=== PATIENT | male | born 1985 | race Caucasian/White ===

== ENCOUNTER 2016-12-26 17:54 | Inpatient (IN) | payer BC, OTHER ==
[~2016-12-26] VITALS: Ht 175.3 cm; Wt 73.5 kg
[2016-12-26] MEDS ORDERED: ONDANSETRON ODT 4 MG TAB.RAPDIS SL PRN (21:00)
[2016-12-26] MEDS ORDERED: HYDROXYZINE PAMOATE 25 MG CAPSULE PO PRN (21:00)
[2016-12-26] MEDS ORDERED: ONDANSETRON 4 MG/2 ML VIAL IM PRN (21:00)
[2016-12-26] MEDS ORDERED: IBUPROFEN 600 MG TABLET PO PRN (21:00)
[2016-12-26] MEDS ORDERED: DICYCLOMINE HCL 20 MG TABLET PO PRN (21:00)
[2016-12-26] MEDS ORDERED: diphenhydrAMINE 50 MG CAPSULE PO PRN (21:00)
[2016-12-26] MEDS ORDERED: MIRALAX 17 GM POWD.PACK PO PRN (21:00)
[2016-12-26] MEDS ORDERED: BUPRENORPHINE HCL 2 MG TAB.SUBL SL PRN (21:00)
[2016-12-26] MEDS ORDERED: CLONIDINE HCL 0.1 MG TABLET PO PRN (21:00)
[2016-12-26] MEDS ORDERED: LOPERAMIDE HCL 2 MG CAPSULE PO PRN ×2 (21:00)
[2016-12-26] MEDS ORDERED: METHOCARBAMOL 750 MG TABLET PO PRN (21:00)
[2016-12-26] MEDS ORDERED: ACETAMINOPHEN 325 MG TABLET PO PRN (21:00)
[2016-12-26] MEDS ORDERED: MAG HYDROX/AL HYDROX/SIMETH 30 ML LIQUID UDC PO PRN (21:00)
--- NOTE | 2016-12-26 21:20 | NUR ---
PRE ADMISSION Pt is a 31 y/o male, seen at intake, AAOx4, no SOB with mild anxiety, flat affect and malaise noted at this time. Discussed with patient the admission policies of the unit. Patient is coherent and able to respond to questions appropriately. Pt reports his last intake of heroin was 0.3 grams via oral inhalation a few hours ago. Pt is ambulatory with steady gait. Vital signs taken and as follows: BP: 114/67, P: 77, R: 16, O2: 98%, T: 96.1, PA: 0/10. Pt verbalized understanding of instructions and teachings regarding disposal of narcotic and other controlled home medications, unit protocols such as taking of vital signs Q4H and handling and disposal of contraband. Pt reports he does not take any home medications. Will continue with admission upon pts arrival on the unit.
--- NOTE | 2016-12-26 21:35 | NUR ---
ADMISSION NOTE Pt is a 31 y/o male admitted on 12/26/16 for opiate dependence, arrived on the unit at 2135. Pt has NKA, denies history of seizures. Pt was able to provide UDS. Upon admission CIWA 1, BP: 114/67, P: 77, R: 16, O2: 98%, T: 96.1, PA: 0/10. Weight 162, height 5'9. Pt reports he does not have a PCP, smokes half a pack daily, denies being hospitalized within past 30 days. Pt is able to understand and respond to all questions pertaining to his hospitalization. Substance Abuse History is as follows: 1. Heroin 0.3-0.4 grams daily, last intake of 0.3 grams via oral inhalation 12/26/16 "a few hours ago," at this rate for 3 days. 2. Methamphetamine "one hit" once a month, last intake via oral inhalation on 12/25/16 "one hit," at this rate for 3 years. Pt reports his longest sober period for 92 days while pt was in a treatment center. Pt has only been to a treatment center once at [facility] in [facility] for 92 days in August 2016. Pt reports this is his first time in medical detox. Pt denies substance use history in family. Pt reports his mother has a valve abnormality, no other family medical conditions. Pt lives with his parents and is unemployed. PMH: Spondylolisthesis, Chlamydia (2009), rhinoplasty (2001) and tonsillectomy (1999). Pt denies any hx of seizures. Pt denies taking any home medications. Upon assessment, pt is AAOx4, pt is mildly intoxicated, presents with anxiety, malaise and flat/depressed affect. Respirations even and unlabored. Denies SOB, chest pain, N/V/D. Bowel sounds active x 4, abdomen soft. PERRLA. Skin intact, no open wounds noted. Pt denies SI/HI. Educational information provided and left at bedside. Pt oriented to room and encouraged to notify staff with any concerns. Safety measures in place. Call light within reach, side rails up x 2, bed locked and in low position. Will continue to monitor.
[2016-12-26 21:42] LABS: BASOPHILS # (AUTO) 0.1 K/uL (0.0-8.0); BASOPHILS % (AUTO) 0.6 % (0.0-2.0); EOSINOPHILS # (AUTO) 0.4 K/uL (0.0-0.7); EOSINOPHILS % (AUTO) 3.4 % (0.0-7.0); HEMATOCRIT 46.8 % (40-50); HEMOGLOBIN 15.8 G/DL (14.0-18.0); LYMPHOCYTES # (AUTO) 2.9 K/UL (0.8-4.8); LYMPHOCYTES % (AUTO) 24.1 % (20.5-51.5); MEAN CORPUSCULAR HEMOGLOBIN 31.2 UUG (27.0-31.0); MEAN CORPUSCULAR HGB CONC 34 g/dL (32.0-37.0); MEAN CORPUSCULAR VOLUME 92.3 FL (82.0-92.0); MONOCYTES # (AUTO) 1.2 K/UL (0.1-1.30); MONOCYTES % (AUTO) 10.2 % (0.0-11.0); NEUTROPHILS # (AUTO) 7.6 K/UL (1.8-8.9); NEUTROPHILS % (AUTO) 61.7 % (38.5-71.5); PLATELET COUNT (AUTO) 319 K/UL (150-450); RED BLOOD CELL COUNT(AUTO) 5.07 MIL/UL (4.7-6.1); WHITE BLOOD COUNT (AUTO) 12.2 K/UL (4.0-11.2)
[2016-12-26 21:56] LABS: ETHANOL < 3 MG/DL (0-0)
[2016-12-26 22:01] LABS: *AMPHETAMINE, URINE POSITIVE (NEGATIVE); *BARBITURATE, URINE NEGATIVE (NEGATIVE); *CANNABINOID, URINE NEGATIVE (NEGATIVE); *COCCAINE, URINE NEGATIVE (NEGATIVE); *OPIATE, URINE POSITIVE (NEGATIVE); *PHENCYCLIDINE SCREEN,URINE NEGATIVE (NEGATIVE)
[2016-12-26 22:10] LABS: ALANINE AMINOTRANSFERASE 20 U/L (16-63); ALKALINE PHOSPHATASE 82 U/L (50-136); ASPARTATE AMINOTRANSFERASE 12 U/L (15-37); BILIRUBIN,TOTAL 0.4 mg/dL (0.2-1.0); CARBON DIOXIDE 33 mmol/L (21-32); CHLORIDE 103 mmol/L (98-107); CREATININE 1.3 mg/dL (0.6-1.3); GLUCOSE 103 mg/dL (74-106); MAGNESIUM 2.2 mg/dL (1.8-2.4); POTASSIUM 4.7 mmol/L (3.5-5.1); TOTAL PROTEIN, SERUM 7.5 g/dL (6.4-8.2); UREA NITROGEN, BLOOD 13 mg/dL (7-18)
[2016-12-27] VITALS (7 sets, daily range): BP systolic 77–112; BP diastolic 47–63
--- NOTE | 2016-12-27 | NUR ---
COW DEFERRED Pt is laying in bed with eyes closed, COW deferred, to be assessed when pt is awake per orders. Respirations 16, even and unlabored. Safety measures in place. Call light within reach. Will continue to monitor.
--- NOTE | 2016-12-27 07:28 | NUR ---
END OF SHIFT Pt is a 31 y/o male admitted on 12/26/16 for opiate dependence. Pt was dependent on 0.3-0.4 grams of heroin for the past three days (since relapse) with last intake of 0.3 grams a few hours prior to admission and reports occasional meth use, one hit every month for the past 3 years, last intake 12/25/16. Pt is full code, NKA, regular diet, fall/seizure precautions. No reported seizure history. Pt reports PMH of spondylolisthesis with hx of Chlamydia (2009), rhinoplasty (2001) and tonsillectomy (1999). No ordered taper at this time, PRN Subutex available. Pt presented with anxiety, flat/depressed affect, fatigue and malaise. No mediations/PRNs administered during shift. Pt slept 7 hours. Intake 650 ml, void x 1, stool x 0. Safety measures in place. Call light within reach. Pts needs have been met. Endorsed to day shift nurse.
--- NOTE | 2016-12-27 07:36 | NUR ---
START OF SHIFT Received report from night nurse. 31 year old male admitted on 12/26/16 for Heroin and Methamphetamine withdrawals. Pt has not yet been started on a taper and does not present with s/s of acute withdrawal at this time. Pt is resting in bed and denies discomfort. V/S are stable, most recent b/p at 0730 is 100/56. Pt slept for 7 hours at night, no PRN medications needed or administered. Last COWS is 1 per night nurse. NKA, full code, regular diet. Safety measures are in place, will continue to monitor.
[2016-12-27] MEDS ORDERED: TUBERCULIN,PURIF.PROT.DERIV. 5 TU/0.1 ML TEST ID ONE ×2 (09:00→15:00)
--- NOTE | 2016-12-27 09:11 | NUR ---
TB TEST IS BEING REQUESTED AT A LATER TIME. PATIENT STATES "I AM OKAY WITH GETTING IT, JUST NOT RIGHT NOW. I WANT TO SLEEP." PATIENT EDUCATION PROVIDED INCLUDING HOSPITAL PROTOCOL. WILL OFFER TB AT 1500.
[2016-12-27] MEDS ORDERED: NICOTINE 14 MG/24HR PATCH TD PRN (11:15)
[2016-12-27] MEDS ORDERED: NICOTINE POLACRILEX 4 MG GUM-PK OF TEN BC PRN (11:15)
[2016-12-27] MEDS ORDERED: BUPRENORPHINE HCL 2 MG TAB.SUBL SL SCH (15:00)
--- NOTE | 2016-12-27 15:00 | NUR ---
TB TEST REFUSED Pt states "I do not want it." Education provided on importance of compliance, pt verbalizes understanding but states he does not believe he was exposed, therefore refuses.
[2016-12-27] MEDS: BUPRENORPHINE HCL 2 MG TAB.SUBL SL SCH ×2 (17:00→20:40)
--- NOTE | 2016-12-27 18:49 | NUR ---
END OF SHIFT Pt has not yet started on Subutex taper, pt was not presenting with acute s/s and denies discomfort, pt states he will notify nurse when withdrawals are present. No medications were given to pt, pt refuses PPD. V/S run low, pt is asymptomatic, denies pain throughout shift. COWS 4 at 1700. Pt remains in room for most of the shift and sleeps, pt encouraged to verbalize feelings and attend groups and activities. Pt remain safe and report he is comfortable at this time. Night nurse to continue monitoring.
--- NOTE | 2016-12-27 19:25 | NUR ---
START OF SHIFT Patient is 31-year-old male admitted on 12/26/16 for heroin and meth dependence. Patient has past medical history of spondylolisthesis, chlamydia in 2009, rhinoplasty in 2001, and tonsillectomy in 1999. Patient is FULL code, NKA, and on a regular diet. Upon assessment, alert and oriented x4, patient is resting in bed. Patient's respirations are even and unlabored. Patient reports that he is not feeling well at the moment as is requesting his scheduled medications. Patient is on fall precautions, bed locked in low position, side rails up x2, call light within reach. Will continue to monitor.
--- NOTE | 2016-12-28 | NUR ---
MIDNIGHT VITALS REFUSED, COWS DEFERRED Patient refuses to be woken up for midnight vitals. Respirations are 16/min, breathing is even and unlabored at this time. Unable to score COWS at this time due to patient sleeping; to be assessed while patient is awake per protocol. Safety measures in place, call light within reach. Will continue to monitor.
--- NOTE | 2016-12-28 04:00 | NUR ---
4AM VITALS REFUSED, COWS DEFERRED Patient refuses to be woken up for 0400 vitals. Respirations are 16/min, breathing is even and unlabored at this time. Unable to score COWS at this time due to patient sleeping; to be assessed while patient is awake per protocol. Safety measures in place, call light within reach. Will continue to monitor.
--- NOTE | 2016-12-28 07:03 | NUR ---
END OF SHIFT Patient is 31-year-old male admitted on 12/26/16 for heroin and meth dependence. Patient has past medical history of spondylolisthesis, chlamydia in 2009, rhinoplasty in 2001, and tonsillectomy in 1999. Patient is FULL code, NKA, and on a regular diet. Patient has slept 7 hrs, total intake 1547 mL, void x2, stool x0. Patient received no PRNS during the shift. Last COWS score was 10. Patient is on fall precautions, bed locked in low position, side rails up x2, call light within reach. Will endorse to day shift.
--- NOTE | 2016-12-28 07:04 | NUR ---
Start of Shift Notes: Received report from night nurse. Patient is in his room. Alert and verbally responsive. Oriented x 4. Able to make her needs known. Respirations even and unlabored. No SOB noted. Skin warm and dry to touch. Abdomen soft and non-distended. BS (+) in all 4 quadrants. No complains of N/V/D or constipation noted. Bladder non-distended. No complains of dysuria noted. Ambulatory ad tim with steady gait. Patient is a 31 year old male admitted for opiate and methamphetamine dependence who was placed on PRNs at this time. Prior to admission, patient was using 0.3 to 0.4grams of heroin, and one hit of methamphetamine monthly. Has past medical hx of spondylosithesis, chlaymydia, rhinoplasty and tonsillectomy. NKA. FULL CODE. Regular diet. Educated patient on the current plan of care for the day and the medication regimen. Patient verbalized good understanding. Encouraged oral fluid intake and encouraged group participation to learn new skills to prevent relapse. Will continue to monitor closely.
[2016-12-28 07:06] LABS: HEPATITIS B SURFACE AG Negative (Negative)
[2016-12-28 08:00] VITALS: BP 100/57
[2016-12-28] MEDS: BUPRENORPHINE HCL 2 MG TAB.SUBL SL SCH ×3 (08:45→21:00)
[2016-12-28 12:00] VITALS: BP 112/72
--- NOTE | 2016-12-28 12:27 | NUR ---
Therapist prompted client to come to group today and stop isolating in his room. Client agreed to attend group.
[2016-12-28 16:00] VITALS: BP 108/61
--- NOTE | 2016-12-28 18:54 | NUR ---
End of Shift Notes: Patient started on a modified 2-day Subutex taper today. No adverse reactions noted. VS monitored closely. No significant abnormalities noted. Withdrawal symptoms closely monitored. Initial COWS 7, patient presented with anxiety, sweats, tremors, yawning and myalgia. Last COWS 4. Per patient, Subutex has been effective in reducing patient's withdrawal symptoms. Requires encouragement to participate in group and activities. Socially withdrawn at times. Compliant with care and treatment. Continues to be on fall and seizure precautions. All needs met and attended. Will continue to monitor closely.
--- NOTE | 2016-12-28 19:30 | NUR ---
START OF SHIFT Pt is a 31 y/o male admitted on 12/26/16 for opiate dependence. Pt was dependent on 0.3-0.4 grams of heroin for the past three days (since relapse) with last intake of 0.3 grams a few hours prior to admission and reports occasional meth use, "one hit" every month for the past 3 years, last intake 12/25/16. Pt is full code, NKA, regular diet and fall/seizure precautions. No reported seizure history. Pt reports PMH of spondylolisthesis with hx of Chlamydia (2009), rhinoplasty (2001) and tonsillectomy (1999). Pt is on a 2 day Subutex taper started 12/28/16, tolerating well. Upon assessment pt is laying in bed with eyes closed and presents with chills, flushing, "body tension," yawning, fatigue, anxiety, flat affect, anhedonia, dysphoria, intermittent sweats and decreased appetite. Respirations 16, even and unlabored. Denies N/V/D. Denies chest pain or SOB. Medications due. Safety measures in place. Call light within reach. Will continue to monitor.
[2016-12-28 20:00] VITALS: BP 97/56
--- NOTE | 2016-12-28 21:00 | NUR ---
SCHEDULED SUBUTEX HELD BP 97/56 HR 58, Subutex held per orders. COW 4. Safety measures in place. Call light within reach. Will continue to monitor.
[2016-12-29] VITALS: BP 91/55
[2016-12-29 04:00] VITALS: BP 99/65
--- NOTE | 2016-12-29 07:19 | NUR ---
START OF SHIFT Pt is a 31 y/o male admitted on 12/26/16 for opiate dependence. Pt was dependent on 0.3-0.4 grams of heroin for the past three days (since relapse) with last intake of 0.3 grams a few hours prior to admission and reports occasional meth use, "one hit" every month for the past 3 years, last intake 12/25/16. Pt is full code, NKA, regular diet and fall/seizure precautions. No reported seizure history. Pt reports PMH of spondylolisthesis with hx of Chlamydia (2009), rhinoplasty (2001) and tonsillectomy (1999). Pt is on a 2 day Subutex taper started 12/28/16, tolerating well. Pt presented with chills, flushing, "body tension," yawning, fatigue, anxiety, flat affect, anhedonia, dysphoria, intermittent sweats and decreased appetite. Scheduled Subutex held d/t BP 97/56 HR 58. No PRNs administered. Last COW 4 at 1999. Pt slept 8 hours. Intake 1143 ml, void x 1, stool x 0. Safety measures in place. Call light within reach. Pts needs have been met. Endorsed to day shift nurse. Addendum: 12/29/16 at 0721 by ALPESH MONTOYA RN END OF SHIFT
--- NOTE | 2016-12-29 07:20 | NUR ---
Start of Shift Notes: Received report from night nurse. Patient is in his room. Alert and verbally responsive. Oriented x 4. Able to make her needs known. Respirations even and unlabored. No SOB noted. Skin warm and dry to touch. Abdomen soft and non-distended. BS (+) in all 4 quadrants. No complains of N/V/D or constipation noted. Bladder non-distended. No complains of dysuria noted. Ambulatory ad tim with steady gait. Patient is a 31 year old male admitted for opiate and methamphetamine dependence who was placed on a 5-day Ativan taper as ordered. No adverse reactions noted. Prior to admission, patient was using 0.3 to 0.4grams of heroin, and one hit of methamphetamine monthly. Has past medical hx of spondylosithesis, chlaymydia, rhinoplasty and tonsillectomy. NKA. FULL CODE. Regular diet. Educated patient on the current plan of care for the day and the medication regimen. Patient verbalized good understanding. Encouraged oral fluid intake and encouraged group participation to learn new skills to prevent relapse. Will continue to monitor closely. Addendum: 12/29/16 at 0731 by ANA SCHROEDER LVN Clarification of note. Patient is not on 5-day Ativan taper. Patient is on a modified 2-day Subutex taper.
[2016-12-29 08:00] VITALS: BP 107/62
[2016-12-29] MEDS: BUPRENORPHINE HCL 2 MG TAB.SUBL SL SCH ×2 (08:38→21:00)
[2016-12-29] MEDS ORDERED: BUPRENORPHINE HCL 2 MG TAB.SUBL SL SCH (09:00)
[2016-12-29 12:00] VITALS: BP 111/66
--- NOTE | 2016-12-29 13:18 | NUR ---
Therapist prompted client to attend group today, Client agreed to attend.
[2016-12-29 16:00] VITALS: BP 112/70
--- NOTE | 2016-12-29 19:05 | NUR ---
End of Shift Notes: Patient continues to be on a modified 3 day Subutex taper. Tolerated well. No adverse reactions noted. VS monitored closely. No significant abnormalities noted. Withdrawal symptoms closely monitored. Initial COWS 3, patient presented with mild anxiety, fine tremors. Last COWS 2. Per patient, Subutex has been effective in reducing patient's withdrawal symptoms. Requires encouragement to participate in group and activities. Socially withdrawn at times. Compliant with care and treatment. Continues to be on fall and seizure precautions. All needs met and attended. Will continue to monitor closely.
--- NOTE | 2016-12-29 19:30 | NUR ---
START OF SHIFT Pt is a 31 y/o male admitted on 12/26/16 for opiate dependence. Pt was dependent on 0.3-0.4 grams of heroin for the past three days (since relapse) with last intake of 0.3 grams a few hours prior to admission and reports occasional meth use, "one hit" every month for the past 3 years, last intake 12/25/16. Pt is full code, NKA, regular diet and fall/seizure precautions. No reported seizure history. Pt reports PMH of spondylolisthesis with hx of Chlamydia (2009), rhinoplasty (2001) and tonsillectomy (1999). Pt is on a 3 day Subutex taper started 12/28/16, tolerating well. Upon assessment pt is laying in bed with eyes closed and presents with chills, flushing, "body tension," yawning, fatigue, anxiety, flat affect, anhedonia, dysphoria, intermittent sweats and decreased appetite. Respirations 16, even and unlabored. Denies N/V/D. Denies chest pain or SOB. Medications due. Safety measures in place. Call light within reach. Will continue to monitor.
[2016-12-29 20:00] VITALS: BP 94/43
--- NOTE | 2016-12-29 21:00 | NUR ---
SCHEDULED SUBUTEX HELD BP 94/43 HR 70, Scheduled Subutex held per orders. COW 3. Pt is laying in bed with eyes closed. Safety measures in place. Call light within reach. Will continue to monitor.
[2016-12-30] VITALS: BP 94/59
--- NOTE | 2016-12-30 | NUR ---
COW DEFERRED Pt is laying in bed with eyes closed, COW deferred, to be assessed when pt is awake per orders. Respirations 14, even and unlabored. Safety measures in place. Call light within reach. Will continue to monitor.
--- NOTE | 2016-12-30 04:00 | NUR ---
COW DEFERRED AND VITALS REFUSED Pt is laying in bed with eyes closed, COW deferred, to be assessed when pt is awake per orders. Vitals refused. Respirations 16, even and unlabored. Safety measures in place. Call light within reach. Will continue to monitor.
--- NOTE | 2016-12-30 07:04 | NUR ---
END OF SHIFT Pt is a 31 y/o male admitted on 12/26/16 for opiate dependence. Pt was dependent on 0.3-0.4 grams of heroin for the past three days (since relapse) with last intake of 0.3 grams a few hours prior to admission and reports occasional meth use, "one hit" every month for the past 3 years, last intake 12/25/16. Pt is full code, NKA, regular diet and fall/seizure precautions. No reported seizure history. Pt reports PMH of spondylolisthesis with hx of Chlamydia (2009), rhinoplasty (2001) and tonsillectomy (1999). Pt is on a 3 day Subutex taper started 12/28/16, tolerating well. Pt presented with chills, flushing, "body tension," yawning, fatigue, anxiety, flat affect, anhedonia, dysphoria, intermittent sweats and decreased appetite. Scheduled Subutex held d/t BP 94/43 per orders. No PRNs administered. Last COW 3 at 1999. Pt slept 10 hours. Intake 1500 ml, void x 3, stool x 1. Safety measures in place. Call light within reach. Pts needs have been met. Endorsed to day shift nurse.
--- NOTE | 2016-12-30 07:49 | NUR ---
Start of shift note; Received report from night nurse. Patient is a 31 year old male admitted on 12/26/16 for Opiate dependence. Patient was placed on a modified Subutex taper, no adverse reactions noted. Patient reported history of spondylolisthesis, chlamydia, rhinoplasty and tonsillectomy. Patient is on fall precautions. All safety measures secured. Will continue to monitor patient.
[2016-12-30 08:00] VITALS: BP 98/68
[2016-12-30] MEDS ORDERED: BUPRENORPHINE HCL 2 MG TAB.SUBL SL SCH (09:00)
--- NOTE | 2016-12-30 10:00 | NUR ---
MD communication; MD was notified regarding patient's refusal to medication. Patient stated "i don't want to take any more medications, i feel ok right now". Will continue to monitor patient.
[2016-12-30 12:00] VITALS: BP 117/74
[2016-12-30] MEDS ORDERED: DICY20TA28 PO (15:53)
[2016-12-30] MEDS ORDERED: IBUP-1955 PO (15:53)
[2016-12-30] MEDS ORDERED: HYDR-3895 PO (15:53)
[2016-12-30] MEDS ORDERED: METH-406 PO (15:53)
[2016-12-30] MEDS ORDERED: DIPH50CA37 PO (15:53)
[2016-12-30 16:00] VITALS: BP 105/62
--- NOTE | 2016-12-30 18:38 | NUR ---
End of shift note; Patient is AOX4. Patient is a 31 year old male admitted on 12/26/16 for Opiate dependence. Patient was placed on a modified Subutex taper, no adverse reactions noted. Patient reported history of spondylolisthesis, chlamydia, rhinoplasty and tonsillectomy. Patient is on fall precautions. All safety measures secured. Patient remained compliant with treatment plan and medication regime. Patient is medically cleared for discharge tomorrow. Met all needs.
--- NOTE | 2016-12-30 19:30 | NUR ---
START OF SHIFT Pt is a 31 y/o male admitted on 12/26/16 for opiate dependence. Pt was dependent on 0.3-0.4 grams of heroin for 3 days with last and reports occasional meth use, "one hit" every month for the past 3 years, last intake 12/25/16. Pt is full code, NKA, regular diet and fall/seizure precautions. No reported seizure history. Pt reports PMH of spondylolisthesis with hx of Chlamydia (2009), rhinoplasty (2001) and tonsillectomy (1999). Pt is on a 3 day Subutex taper started 12/28/16, taper finished and he is scheduled to be d/c tomorrow. Upon assessment pt presents with mild "body tension," yawning, fatigue, anxiety, flat affect, anhedonia, dysphoria, intermittent sweats and decreased appetite. Respirations 16, even and unlabored. Denies N/V/D. Denies chest pain or SOB. No scheduled medications ordered, PRNs available. Safety measures in place. Call light within reach. Will continue to monitor.
[2016-12-30 20:00] VITALS: BP 102/54
--- NOTE | 2016-12-31 | NUR ---
COW DEFERRED AND VITALS REFUSED Pt is laying in bed with eyes closed, CIWA deferred, to be assessed when pt is fully awake per orders. Pt refused vitals. Respirations 16, even and unlabored. Safety measures in place. Call light within reach. Will continue to monitor.
--- NOTE | 2016-12-31 07:12 | NUR ---
END OF SHIFT Pt is a 31 y/o male admitted on 12/26/16 for opiate dependence. Pt was dependent on 0.3-0.4 grams of heroin for 3 days with last and reports occasional meth use, "one hit" every month for the past 3 years, last intake 12/25/16. Pt is full code, NKA, regular diet and fall/seizure precautions. No reported seizure history. Pt reports PMH of spondylolisthesis with hx of Chlamydia (2009), rhinoplasty (2001) and tonsillectomy (1999). Pt is on a 3 day Subutex taper started 12/28/16, taper finished and is scheduled to be d/c today. Pt presented with mild "body tension," yawning, fatigue, anxiety, flat affect, anhedonia, dysphoria, intermittent sweats and decreased appetite. No scheduled medications ordered and no PRNs administered. Last COW 3 at 1999. Pt verbalizes his withdrawal S/S are manageable and denies medication. Slept 8 hours. Intake 355 ml, void x 1, stool x 0. Safety measures in place. Call light within reach. Pts needs have been met. Endorsed to day shift nurse.
[2016-12-31 08:00] VITALS: BP 108/62
--- NOTE | 2016-12-31 08:00 | NUR ---
START OF SHIFT NOTE Received report from night nurse, 31 year old male admitted for Opiate dependence. Patient completed his modified Subutex taper, tolerated well. Patient has a history of spondylolisthesis, chlamydia, rhinoplasty and tonsillectomy. Per endorsement pt did not receive any PRN medication, last COWS score was 3, slept for 8 hours. Patient received awake, alert and oriented x4, Educated patient regarding plan of care for the day and medication regimen with good verbal understanding. Safety measures in place. call light with in reach, will continue to monitor.
--- NOTE | 2016-12-31 09:27 | NUR ---
DISCHARGE NOTE Patient is in stable condition. Vital signs WNL,Patient is alert oriented x4, Skin intact warm and dry to touch. Patient denies any SI/HI ideations. All discharge paper work done signed and dated. Patient educated about discharge instructions, Pt verbalized understanding. Patient 's last COWS score was 0. Patient discharged from [facility] on 12/31/16 at 0927. Patient left the building with all of his belongings and prescriptions, Patient did not bring any medications with him to the unit. has been contracted and notified of Pt's discharge.
== END 2016-12-31 09:27 | disposition home or self-care (01) | DRG 895 ==
LOC: SRC 20:31
PROVIDERS: ADMIT Internal Medicine; ATTEND Internal Medicine
PROC: HZ2ZZZZ Detoxification Services for Substance Abuse Treatment (ICD-10-PCS; principal; 2016-12-26)
PROC: HZ31ZZZ Individual Counseling for Substance Abuse Treatment, Behavioral (ICD-10-PCS; 2016-12-28)
PROC: HZ41ZZZ Group Counseling for Substance Abuse Treatment, Behavioral (ICD-10-PCS; 2016-12-29)
DX: F11.23 Opioid dependence with withdrawal (principal); E87.3 Alkalosis; E86.0 Dehydration; F17.210 Nicotine dependence, cigarettes, uncomplicated; G89.29 Other chronic pain; D72.823 Leukemoid reaction; Z82.49 Family history of ischemic heart disease and other diseases of the circulatory system; F15.10 Other stimulant abuse, uncomplicated
CPT/HCPCS: 36415; 70030-TC; 80307; 80324; 80361; 83735; 85025; 86592; 86705; 86803; 87340; 87806; A4663; G0480